=== PATIENT | female | born 1995 | race African-American/Black ===

== ENCOUNTER 2016-04-21 23:11 | Emergency (ER) | payer OTHER ==
[2016-04-21 23:17] VITALS: BP 119/82; PULSE 112; TEMP 98; BMI 36.6
--- NOTE | 2016-04-22 00:13 | PDOC ---
History of Present Illness - General History Source: Patient Exam Limitations: No Limitations - History of Present Illness Initial Comments: 04/22/16 00:44 The patient is a 20 year old female with no significant past medical history who presents to the ED with 2 weeks of worsening white vaginal discharge. Patient reports her vaginal discharge is thick in consistency, malodorous, itchy , and murphy. She denies any vaginal bleeding, dysuria, hematuria, urgency, and frequency. Patient was seen in a different hospital about 1 week ago where she was treated for a UTI, however her symptoms continue to persist. She states the last time she has been sexually active was 2 months ago. The patient denies fever, chills, cough, SOB, chest pain, and palpitations. The patient denies abdominal pain, nausea, vomiting, and diarrhea. Allergies: NKDA Social History: No alcohol, tobacco, or drug use reported. Past Surgical History: None reported <Radha Smalls - Last Filed: 04/22/16 00:44> - General History Source: Patient <Dany Houston - Last Filed: 04/22/16 01:33> - General Chief Complaint: Urinary Problem Stated Complaint: URINARY PROBLEM Time Seen by Provider: 04/22/16 00:13 Past History <Radha Smalls - Last Filed: 04/22/16 00:44> - Past Medical History Asthma: No Cancer: No Cardiac Disorders: No Diabetes: No HTN: No Seizures: No Thyroid Disease: No - Psycho/Social/Smoking Cessation Hx Suicidal Ideation: No Smoking History: Never smoked Hx Alcohol Use: No Drug/Substance Use Hx: Yes Hx Substance Use Treatment: No <Dany Houston - Last Filed: 04/22/16 01:33> - Past Medical History Allergies/Adverse Reactions: Allergies Allergy/AdvReac Type Severity Reaction Status Date / Time milk Allergy Intermediate Hives Verified 04/21/16 23:15 Home Medications: Ambulatory Orders Metronidazole [Flagyl -] 500 mg PO BID #14 tablet 04/22/16 Review of Systems - Review of Systems Able to Perform ROS?: Yes Comments:: 04/22/16 00:44 CONSTITUTIONAL: Absent: fever, no chills, no fatigue EYES: Absent: visual changes ENT: Absent: ear pain, no sore throat CARDIOVASCULAR: Absent: chest pain, no palpitations RESPIRATORY: Absent: cough, no SOB GI: Absent: abdominal pain, no nausea, no vomiting, no constipation, no diarrhea GENITOURINARY: +thick white vaginal discharge, malodorous, itchy, and murphy Absent: dysuria, no frequency, no hematuria MUSKULOSKELETAL: Absent: back pain, no arthralgia, no myalgia SKIN: Absent: rash NEURO: Absent: headache <Radha Smalls - Last Filed: 04/22/16 00:44> *Physical Exam - Vital Signs Last Vital Signs Temp Pulse Resp BP Pulse Ox 98 F 112 H 18 119/82 97 04/21/16 23:16 04/21/16 23:16 04/21/16 23:16 04/21/16 23:16 04/21/16 23:16 - Physical Exam Comments: 04/22/16 00:44 GENERAL: Well-appearing, well-nourished. No apparent distress. HEENT: Normocephalic, atraumatic. PERRL, EOM intact. CARDIOVASCULAR: Normal S1, S2. Regular rate and rhythm. PULMONARY: Clear to auscultation bilaterally. ABDOMEN: Soft, non-distended, non-tender. PELVIC: Copious amounts of watery malodorous yellow discharge. No blood. No lesions. No CMT. No adnexal tenderness EXTREMITIES: Normal ROM in all four extremities. No gross deformities. SKIN: Warm, dry. No rash NEUROLOGICAL: No focal neurological deficits. <Radha Smalls - Last Filed: 04/22/16 00:44> - Vital Signs Last Vital Signs Temp Pulse Resp BP Pulse Ox 98 F 112 H 18 119/82 97 04/21/16 23:16 04/21/16 23:16 04/21/16 23:16 04/21/16 23:16 04/21/16 23:16 <Dany Houston - Last Filed: 04/22/16 01:33> Medical Decision Making - Medical Decision Making 04/22/16 01:33 Dr. Houston: The scribe's documentation has been prepared under my direction and personally reviewed by me in its entirery. I confirm that the note above accurately reflects all work, treatment, procedures, and medical decision making performed by me. <Dany Houston - Last Filed: 04/22/16 01:33> *DC/Admit/Observation/Transfer - Attestations Scribe Attestion: 04/22/16 00:44 Documentation prepared by Radha Smalls, acting as medical record specialist for Dany Houston MD <Radha Smalls - Last Filed: 04/22/16 00:44> - Discharge Dispostion Admit: No <Dany Houston - Last Filed: 04/22/16 01:33> Diagnosis at time of Disposition: Bacterial vaginosis - Discharge Dispostion Disposition: HOME Condition at time of disposition: Stable - Prescriptions Prescriptions: Metronidazole [Flagyl -] 500 mg PO BID #14 tablet - Referrals Referrals: STAFF,NOT ON [Primary Care Provider] - Roger Medellin MD [Staff Physician] - - Patient Instructions Printed Discharge Instructions: DI for Bacterial Vaginosis Additional Instructions: please avoid alcohol, or anything that contains alcohol when taking the antibiotic Flagyl. Please follow up with your tooling supervisor when have completed the antibiotic
[2016-04-22 01:11] LABS: URINE APPEARANCE CLOUDY; URINE BILIRUBIN NEGATIVE (NEGATIVE); URINE COLOR DKYELLOW; URINE GLUCOSE (UA) NEGATIVE (NEGATIVE); URINE KETONE NEGATIVE (NEGATIVE); URINE NITRITE NEGATIVE (NEGATIVE); URINE UROBILINOGEN NEGATIVE E.U./dl (0.2-1.0)
[2016-04-22 01:15] LABS: URINE BLOOD 1+ (NEGATIVE); URINE LEUK ESTERASE 3+ (NEGATIVE); URINE PROTEIN 2+ (NEGATIVE)
[2016-04-22] MEDS ORDERED: metroNIDAZOLE 500 MG TABLET PO ONE (01:26)
[2016-04-22] MEDS ORDERED: metroNIDAZOLE 250 MG TABLET ONE (01:34)
[2016-04-22 02:26] LABS: URINE BACTERIA MANY /hpf (NONE SEEN); URINE MUCUS MANY; URINE RBC 174 /hpf (0-3); URINE WBC 628 /hpf (3-5)
== END 2016-04-22 01:38 | disposition home or self-care (01) ==
LOC: JER 23:11
DX: N76.0 Acute vaginitis (principal)
CPT/HCPCS: 81003; 81015; 84703; 87086; 99282-25

== ENCOUNTER 2017-04-25 01:27 | Emergency (ER) | payer OTHER ==
[2017-04-25 01:57] VITALS: BP 118/73; PULSE 101; TEMP 98.4; BMI 39.6
--- NOTE | 2017-04-25 01:58 | PDOC ---
History of Present Illness <Berta Monsalve - Last Filed: 04/25/17 04:14> - General History Source: Patient Exam Limitations: No Limitations - History of Present Illness Initial Comments: 04/25/17 04:12 The patient is a 21 year old female, AO, with no significant PMH who presents to the emergency department with vaginal and thigh rash after shaving 3 days ago. The patient states she normally uses Dove soap and denies any changes in soaps or lotions. The patient reports 1 sexual partner. The patient denies any history of STDs. The patient denies any vaginal discharge or foul odor. The patient denies chest pain, shortness of breath, headache and dizziness. Denies fever, chills, nausea, vomit, diarrhea and constipation. Denies dysuria, frequency, urgency and hematuria. Allergies: NKA Past surgical history: 2 C-sections Social history: No reported alcohol, drug, or cigarette use. <Ellen Cerrato - Last Filed: 04/25/17 05:27> - General Chief Complaint: Vaginal Sxs Stated Complaint: PAIN Time Seen by Provider: 04/25/17 01:56 Past History - Past Medical History Asthma: No Cancer: No Cardiac Disorders: No COPD: No Diabetes: No HTN: No Seizures: No Thyroid Disease: No Other medical history: Pt denies - Suicide/Smoking/Psychosocial Hx Smoking History: Never smoked Have you smoked in the past 12 months: No Information on smoking cessation initiated: No Hx Alcohol Use: No Drug/Substance Use Hx: No Substance Use Type: None Hx Substance Use Treatment: No <Berta oMnsalve - Last Filed: 04/25/17 04:14> <Ellen Cerrato - Last Filed: 04/25/17 05:27> - Past Medical History Allergies/Adverse Reactions: Allergies Allergy/AdvReac Type Severity Reaction Status Date / Time milk Allergy Intermediate Hives Verified 04/25/17 01:52 No Known Drug Allergies Allergy Verified 04/25/17 01:52 Home Medications: Ambulatory Orders Sulfamethoxazole/Trimethoprim [Bactrim Ds Tablet] 1 each PO BID #14 tablet 04/25 Review of Systems - Review of Systems Able to Perform ROS?: Yes Comments:: 04/25/17 05:18 GENERAL/CONSTITUTIONAL: No fever or chills. No weakness. HEAD, EYES, EARS, NOSE AND THROAT: No change in vision. No ear pain or discharge. No sore throat. CARDIOVASCULAR: No chest pain or shortness of breath. RESPIRATORY: No cough, wheezing, or hemoptysis. GASTROINTESTINAL: No nausea, vomiting, diarrhea or constipation. GENITOURINARY: (+) Vaginal and thigh rash. No dysuria, frequency, or change in urination. MUSCULOSKELETAL: No joint or muscle swelling or pain. No neck or back pain. SKIN: No rash NEUROLOGIC: No headache, vertigo, loss of consciousness, or change in strength/ sensation. ENDOCRINE: No increased thirst. No abnormal weight change. HEMATOLOGIC/LYMPHATIC: No anemia, easy bleeding, or history of blood clots. ALLERGIC/IMMUNOLOGIC: No hives or skin allergy. <Ellen Cerrato - Last Filed: 04/25/17 05:27> *Physical Exam - Vital Signs Last Vital Signs Temp Pulse Resp BP Pulse Ox 98.4 F 101 H 20 118/73 100 04/25/17 01:55 04/25/17 01:55 04/25/17 01:55 04/25/17 01:55 04/25/17 01:55 <Berta Monsalve - Last Filed: 04/25/17 04:14> - Vital Signs Last Vital Signs Temp Pulse Resp BP Pulse Ox 98.4 F 101 H 20 118/73 100 04/25/17 01:55 04/25/17 01:55 04/25/17 01:55 04/25/17 01:55 04/25/17 01:55 - Physical Exam Comments: 04/25/17 05:20 GENERAL: Awake, alert, and fully oriented, in no acute distress HEAD: No signs of trauma EYES: PERRLA, EOMI, sclera anicteric, conjunctiva clear ENT: Auricles normal inspection, hearing grossly normal, nares patent, oropharynx clear without exudates. Moist mucosa NECK: Normal ROM, supple, no lymphadenopathy, JVD, or masses LUNGS: Breath sounds equal, clear to auscultation bilaterally. No wheezes, and no crackles HEART: Regular rate and rhythm, normal S1 and S2, no murmurs, rubs or gallops ABDOMEN: Soft, nontender, normoactive bowel sounds. No guarding, no rebound. No masses : macular, papular follicular bumps in the inner thigh and the vaginal trigone EXTREMITIES: Normal range of motion, no edema. No clubbing or cyanosis. No cords, erythema, or tenderness NEUROLOGICAL: Cranial nerves II through XII grossly intact. Normal speech, normal gait SKIN: Warm, Dry, normal turgor, no rashes or lesions noted. <Ellen Cerrato - Last Filed: 04/25/17 05:27> ED Treatment Course - ADDITIONAL ORDERS Additional order review: Laboratory Results 04/25/17 03:00 Urine Color Yellow Urine Appearance Slcloudy Urine pH 6.0 Ur Specific [place] 1.027 Urine Protein 1+ H Urine Glucose (UA) Negative Urine Ketones Negative Urine Blood Negative Urine Nitrite Negative Urine Bilirubin Negative Urine Urobilinogen 2.0 H Ur Leukocyte Esterase 3+ H Urine WBC (Auto) 172 Urine RBC (Auto) 64 Ur Epithelial Cells Rare Urine Bacteria Few Urine Mucus Few Urine HCG, Qual Negative <Ellen Cerrato - Last Filed: 04/25/17 05:27> *DC/Admit/Observation/Transfer - Discharge Dispostion Admit: No <Berta Monsalve - Last Filed: 04/25/17 04:14> - Attestations Scribe Attestion: 04/25/17 05:27 Documentation prepared by Ellen Cerrato, acting as medical housekeeper for Berta Monsalve MD. <Ellen Cerrato - Last Filed: 04/25/17 05:27> Diagnosis at time of Disposition: Folliculitis - Prescriptions Prescriptions: Sulfamethoxazole/Trimethoprim [Bactrim Ds Tablet] 1 each PO BID #14 tablet - Patient Instructions Printed Discharge Instructions: DI for Folliculitis
[2017-04-25 03:16] LABS: URINE APPEARANCE SLCLOUDY; URINE BILIRUBIN NEGATIVE (NEGATIVE); URINE BLOOD NEGATIVE (NEGATIVE); URINE COLOR YELLOW; URINE GLUCOSE (UA) NEGATIVE (NEGATIVE); URINE KETONE NEGATIVE (NEGATIVE); URINE NITRITE NEGATIVE (NEGATIVE)
[2017-04-25 03:42] LABS: URINE LEUK ESTERASE 3+ (NEGATIVE); URINE PROTEIN 1+ (NEGATIVE)
[2017-04-25 03:43] LABS: HCG,QUALITATIVE URINE NEGATIVE
[2017-04-25 03:46] LABS: EPI CELLS RARE /HPF (FEW); URINE BACTERIA FEW /hpf (NONE SEEN); URINE MUCUS FEW
[2017-04-25] MEDS ORDERED: SULFAMETHOXAZOLE/TRIMETHOPRIM 800MG/160MG D.S. TABLET PO ONE (04:14)
[2017-04-25] MEDS ORDERED: SULFAMETHOXAZOLE/TRIMETHOPRIM 800MG/160MG D.S. TABLET ONE (04:19)
== END 2017-04-25 05:07 | disposition home or self-care (01) ==
LOC: JER 01:27
DX: L73.8 Other specified follicular disorders (principal)
CPT/HCPCS: 36415; 81003; 81015; 84703; 87491; 87591; 99282-25